=== PATIENT | female | born 1935 | race Caucasian/White ===

== ENCOUNTER 2022-06-19 14:15 | Outpatient (RCR) | payer MEDICARE, SELFPAY | END 2022-06-19 16:02 | disposition home or self-care (01) | PROVIDERS: Visit Provider Family Medicine | DX: M25.561 Pain in right knee (principal); R26.9 Unspecified abnormalities of gait and mobility; Z51.89 Encounter for other specified aftercare | CPT/HCPCS: 97110; 97140 ==

== ENCOUNTER 2022-06-26 12:01 | Observation (INO) | payer MEDICARE, SELFPAY ==
[2022-06-26] VITALS (15 sets, daily range): BP systolic 111–184; BP diastolic 68–101; PULSE 72–92; RESP 11–66; TEMP 36.4–36.8; O2SAT 92–99; BMI 29.2; BMI 29.3
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
[2022-06-26 14:47] LABS: Basophils Absolute Auto 0.02 K/uL (0.00-0.30); Basophils Percent Auto 0.2 % (0.0-3.0); Eosinophils Absolute Auto 0.06 K/uL (0.00-0.50); Eosinophils Percent Auto 0.7 % (0.0-7.0); Hematocrit 43.1 % (33.0-51.0); Hemoglobin* 14.7 gm/dL (12.0-16.0); Immature Granulocytes Abs Auto 0.02 K/uL (0.00-0.30); Lymphocytes Percent Auto 17.1 % (20-44); Mean Corpuscular HGB Conc 34 gm/dL (32-36); Mean Corpuscular Hemoglobin 32 pg (26-34); Mean Corpuscular Volume 94 fL (80-100); Monocytes Percent Auto 6.3 % (0.0-11.0); Neutrophils Percent Auto 75.5 % (42.0-72.0); Platelet Count* 226 K/uL (140-440); RDW Coefficient of Variation % 12.7 % (11.5-15.5); Red Blood Count 4.61 m/uL (4.00-5.20); White Blood Count* 8.06 K/uL (4.50-11.00)
[2022-06-26 14:48] LABS: Slide Review Reflex No
[2022-06-26 14:59] LABS: Albumin* 4.5 g/dL (3.3-5.0); Chloride* 104 mmol/L (96-114)
[2022-06-26 15:00] LABS: Sodium* 136 mmol/L (135-149)
[2022-06-26 15:02] LABS: Alkaline Phosphatase* 78 U/L (40-150); Aspartate Amino Transferase* 38 U/L (12-35); Bilirubin Total* 0.4 mg/dL (0.1-1.5); Blood Urea Nitrogen* 17 mg/dL (7-30); Carbon Dioxide* 25 mmol/L (20-32); Est. Creatinine Clearance* 35.52; Estimated Glomerular Filt Rate 55 ml/min; Total Protein* 7.7 g/dL (6.0-8.3)
[2022-06-26 15:03] LABS: Alanine Aminotransferase* 17 U/L (4-35); Calcium* 9.4 mg/dL (8.4-10.6); Creatine Kinase* 104 U/L (41-117); Glucose* 108 mg/dL (60-115)
[2022-06-26 15:15] LABS: Troponin I* 0.01 ng/mL (0.01-0.04)
--- NOTE | 2022-06-26 16:00 | ED.NURSE ---
dr diehl did speak to consulting ed md from [facility] [place].
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
[2022-06-26 18:24] LABS: SARS PCR* Negative SARS-CoV-2 (Negative)
[2022-06-26] MEDS: MELATONIN 3 MG TABLET PO (20:15)
--- NOTE | 2022-06-26 20:44 | PC.NURSE ---
shift note: pt to floor via stretcher @ [id number]. Pt a&o x3. pt states she has lingering BROWN and indicates it being behind eyes. Pt states BROWN 01/11. LS clr. Pt has irreg palpated HR. Pt denies c.p or pressure. pt states she doesn't feel irreg HR. BP's stable. oriented pt to room. Pt ordered meal. Belongings reviewed.
[2022-06-27] MEDS: ACETAMINOPHEN 325 MG TABLET 650 MG PO (04:32)
[2022-06-27 04:39] VITALS: BP 123/69; PULSE 67; RESP 16; TEMP 36.5; O2SAT 92
--- NOTE | 2022-06-27 06:28 | PC.NURSE ---
Alert and oriented x4. On room air and vitals stable. On normal sinus rhythm overnight. Intermittent headache pain managed with Tylenol. Denies any concerns
[2022-06-27 08:00] VITALS: PULSE 60; PULSE 70; RESP 18
[2022-06-27 08:06] VITALS: BP 148/78; PULSE 70; RESP 18; TEMP 36.8; O2SAT 97
[2022-06-27] MEDS: LOSARTAN POTASSIUM 50 MG TABLET PO (09:35)
[2022-06-27] MEDS: MULTIVITAMIN/MINERALS 1 TABLET 1 TAB PO (09:35)
[2022-06-27] MEDS: hydroCHLOROthiazide 12.5 MG CAPSULE PO (09:35)
[2022-06-27] MEDS: ASPIRIN 81 MG TABLET EC PO (09:36)
[2022-06-27 12:00] VITALS: BP 147/91; PULSE 68; RESP 17; TEMP 36.9; O2SAT 99
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
--- NOTE | 2022-06-27 14:08 | PC.NURSE ---
0700 shift: Pt. up indep. in room, denies pain or SOB. Tele showing NSR with occasional PVCs. Notes occasionally feeling a flutter in chest but passes quickly. Tolerating regular diet, no nausea. Discharge orders received, paperwork completed, signed and placed in chart. No IV in place. Vitals WNL. Discharged around 1330 w/belongings, accompanied by family.
== END 2022-06-27 13:30 | disposition home or self-care (01) ==
LOC: ED 16:19 → MEDSURG 16:30
PROVIDERS: Admitting Provider Family Medicine; Emergency Provider Family Medicine; PCP Family Medicine; Visit Provider Family Medicine
DX: T75.4XXA Electrocution, initial encounter (principal); I48.91 Unspecified atrial fibrillation; I49.3 Ventricular premature depolarization; W86.0XXA Exposure to domestic wiring and appliances, initial encounter; Y93.G3 Activity, cooking and baking; Y92.000 Kitchen of unspecified non-institutional (private) residence as the place of occurrence of the external cause; I10 Essential (primary) hypertension; Z79.82 Long term (current) use of aspirin; Z90.49 Acquired absence of other specified parts of digestive tract; Z90.710 Acquired absence of both cervix and uterus
CPT/HCPCS: 36415; 80053; 82550; 84484; 85025; 87635; 93005; 99281; 99284; 99285; G0378; A9153; A9270; G0379

== ENCOUNTER 2023-06-18 18:12 | Emergency (ER) | payer MEDICARE, SELFPAY ==
[2023-06-18] VITALS (10 sets, daily range): BP systolic 138–196; BP diastolic 59–88; PULSE 53–67; RESP 18; TEMP 36.8; O2SAT 93–98; BMI 28.3
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
[2023-06-18 19:22] LABS: Troponin, Point-of-Care* 0.01 ng/ml (0.01-0.04)
[2023-06-18 19:24] LABS: Basophils Absolute Auto 0.03 K/uL (0.00-0.30); Basophils Percent Auto 0.6 % (0.0-3.0); Eosinophils Absolute Auto 0.17 K/uL (0.00-0.50); Eosinophils Percent Auto 3.3 % (0.0-7.0); Hematocrit 42.2 % (33.0-51.0); Hemoglobin* 14.2 gm/dL (12.0-16.0); Lymphocytes Absolute Auto 1.83 K/uL (0.90-2.90); Lymphocytes Percent Auto 35.7 % (20-44); Mean Corpuscular HGB Conc 34 gm/dL (32-36); Mean Corpuscular Hemoglobin 32 pg (26-34); Mean Corpuscular Volume 94 fL (80-100); Monocytes Percent Auto 10.5 % (0.0-11.0); Neutrophils Absolute Auto 2.55 K/uL (1.7-7.0); Neutrophils Percent Auto 49.9 % (42.0-72.0); Platelet Count* 220 K/uL (140-440); RDW Coefficient of Variation % 12.6 % (11.5-15.5); White Blood Count* 5.12 K/uL (4.50-11.00)
[2023-06-18 19:27] LABS: Slide Review Reflex No
[2023-06-18 19:35] LABS: Chloride* 104 mmol/L (96-114); Potassium* 3.9 mmol/L (3.6-5.1); Sodium* 138 mmol/L (135-149)
[2023-06-18 19:38] LABS: Carbon Dioxide* 27 mmol/L (20-32); Est. Creatinine Clearance* 34.87; Estimated Glomerular Filt Rate 55 ml/min
[2023-06-18 19:39] LABS: Blood Urea Nitrogen* 17 mg/dL (7-30); Calcium* 9.1 mg/dL (8.4-10.6); Glucose* 100 mg/dL (60-115); Magnesium* 2.2 mg/dL (1.5-2.6)
== END 2023-06-18 20:11 | disposition home or self-care (01) ==
PROVIDERS: Emergency Provider Family Medicine; PCP Family Medicine
DX: R00.1 Bradycardia, unspecified (principal)
CPT/HCPCS: 36415; 80048; 83735; 84484; 85025; 93005; 99284